=== PATIENT | male | born 1935 | race Caucasian/White ===

== ENCOUNTER 2016-09-26 08:37 | Outpatient (CLI) | payer MEDICARE, BC ==
[~2016-09-26] VITALS: Ht 175.3 cm; Wt 90.9 kg
--- NOTE | ~2016-09-26 | HEMODYNAMI ---
PATIENT:SHERIDAN HAMLIN V SR MEDICAL RECORD: [id number] : 33 LOCATION:DSAMMI ADMISSION DATE: 09/26/16 Generatedon:09/26/201611:27 Patient name: SHERIDAN HAMLIN Patient #: [id number] SSN: DO B: 1935 Date of study: 09/26/2016 Page: Of Hemodynamic Procedure Report Patient Data Patient Demographics Procedure consent was obtained First Name: SHERIDAN Gender: Male Last Name: YAKELIN Suffix: Sr [facility] Initial: V : 1935 Patient #: [id number] Age: 81 year(s) Race: Unknown Additional ID: [id number] Contact details [address]: [address] [place] [address] State: [place] City: [place] Zip code: [address] Past Medical History Allergies: No known allergies Admission Admission Data Admission Date: 09/26/2016 Admission Time: 8:37 Admit Source: Other Lab Results Lab Result Date: 09/26/2016 Lab Result Time: 9:25 Biochemistry Name Units Result Min Max BUN mg/dl 17 --(---*)-- 7 18 Creatinine mg/dl 1.4 --(----)*- 0.6 1.3 CBC Name Units Result Min Max Hematocrit % 42.9 --(*---)-- 42 54 Hemoglobin g/dl 13.3 -*(----)-- 13.5 17.5 Procedure Procedure Types Cath Procedure Diagnostic Procedure LHC LHC w/Coronaries w/Grafts PCI Procedure Coronary Stent Initial Miscellaneous Procedures Moderate Sedation up to 30 minutes Procedure Description Procedure Date Procedure Date: 09/26/2016 Procedure Start Time: 11:07 Procedure End Time: 11:27 Procedure Staff Name Function Micheal Ann MD Performing Physician Joselito Lizama RT Scrub Chapo Sapp RN Nurse Dave Adame RT Monitor Procedure Data Cath Procedure Fluoroscopy Diagnostic fluoroscopy Total fluoroscopy Time: 6.5 time: 6.5 min min Diagnostic fluoroscopy Total fluoroscopy dose: dose: 1078 mGy 1078 mGy Contrast Material Contrast Material Type Amount (ml) Isovue 300 128 Entry Location Entry Primary Successful Side Size Upsize Upsize Entry Closure Succes sful Closure Location (Fr) 1 (Fr) 2 (Fr) Remarks Device Remarks Femoral Right 5 Fr 6 Fr Exoseal artery Short Estimated blood loss: 10 ml Diagnostic catheters Device Type Used For End Catheter Placement Cordis 5Fr Pigtail Procedure Catheter (MP) Cordis 5Fr JL 4.0 Procedure Catheter (MP) Cordis 5Fr 3DRC Catheter Procedure (MP) Diagnostic Infinity 5Fr Procedure AR 2 MOD catheter Procedure Complications No complications Procedure Medications Medication Administration Route Dosage Oxygen NC 2 l/min Heparin Flush Bag added to field 2 bags (1000units/500ml NS) 0.9% NaCl I.V. 100 ml/hr Plavix P.O. 75 mg Fentanyl I.V. 50 mcg Versed I.V. 1 mg Fentanyl I.V. 50 mcg Versed I.V. 1 mg Heparin Bolus I.V. 4000 units Hemodynamics Rest HGB: 13.3 (g/dl) Heart Rate: 70 (bpm) Snapshots Pre Cath Intra NCS Post Cath Vital Signs Time Heart Resp SPO2 etCO2 PA9oijv NIBP (mmHg) Rhythm Pain Sedation Rate (ipm) (%) (mmHg) (mmHg) Status Level (bpm) 10:54:48 67 19 97 0 0 176/81(140) NSR 0 (11) 10(A) , No pain 10:59:17 58 17 95 0 0 157/79(133) NSR 0 (11) 10(A) , No pain 11:03:43 64 16 97 0 0 158/69(129) NSR 0 (11) 10(A) , No pain 11:08:09 67 19 92 0 0 138/65(112) NSR 0 (11) 9(A) , No pain 11:12:25 69 19 96 0 0 130/66(99) NSR 0 (11) 9(A) , No pain 11:16:41 65 18 97 0 0 135/68(103) NSR 0 (11) 9(A) , No pain 11:20:57 69 17 98 0 0 123/66(99) NSR 0 (11) 9(A) , No pain 11:25:01 64 17 98 0 0 126/69(89) NSR 0 (11) 9(A) , No pain Medications Time Medication Route Dose Verified Delivered Reason Notes Effectiveness by by 10:54:45 Oxygen NC 2 Chapo Chapo Per physician l/min Sekou Sapp RN RN 10:54:54 Heparin Flush added 2 Chapo Verasy used for Bag to bags Sekou Sapp RN procedure (1000units/500ml field RN NS) 10:55:03 0.9% NaCl I.V. 100 Chapo Verasy Per physician ml/hr Sekou Sapp RN RN 10:55:15 Plavix P.O. 75 mg Chapo Chapo for Sekou Sapp RN antiplatelet RN therapy 11:02:12 Fentanyl I.V. 50 Chapo Chapo for sedation mcg Sekou Sapp RN RN 11:02:19 Versed I.V. 1 mg Chapo Chapo for sedation Sekou Sapp RN RN 11:07:04 Fentanyl I.V. 50 Chapo Chapo for sedation mcg Sekou Sapp RN RN 11:07:08 Versed I.V. 1 mg Chapo Chapo for sedation Sekou Sapp RN RN 11:15:00 Heparin Bolus I.V. 4000 Chapo Chapo for units Sekou Sapp RN anticoagulation rn tele Log Time Note 10:30:08 Chapo Sapp RN sent for patient. Start room use. 10:40:27 Informed consent obtained and on chart 10:40:32 Admit Source: Other 10:41:07 Diagnostic Cath status Elective 10:41:18 Time tracking: Regular hours 10:41:21 Plan of Care:Hemodynamics will remain stable., Cardiac rhythm will remain stable., Comfort level will be maintained., Respiratory function will remain adequate., Patient/ family verbilizes understanding of procedure., Procedure tolerated without complication., Recovers from procedure without complications.. 10:41:35 H&P Date Dictated: 09/03/2016 Within 30 days and on chart., H&P Addendum completed by physician on day of procedure. (MUST COMPLETE FOR ALL OUTPATIENTS). 10:43:02 Lab Result : Creatinine 1.4 mg/dl 10:43:02 Lab Result : BUN 17 mg/dl 10:43:02 Lab Result : Hematocrit 42.9 % 10:43:02 Lab Result : Hemoglobin 13.3 g/dl 10:46:11 Patient received from Pre/Post Procedure Room to CCL 1 Alert and oriented. Tansferred to table in Supine position. 10:46:12 Warm blankets applied, and sandrita hugger turned on for patient comfort. 10:46:12 Correct patient and procedure confirmed by team. 10:46:13 ECG and BP/O2 sat monitors applied to patient. 10:53:32 Vital chart was started 10:54:45 Oxygen 2 l/min NC was administered by Chapo Sapp RN; Per physician; 10:54:54 Heparin Flush Bag (1000units/500ml NS) 2 bags added to field was administered by Chapo Sapp RN; used for procedure; 10:55:03 0.9% NaCl 100 ml/hr I.V. was administered by Chapo Sapp RN; Per physician; 10:55:15 Plavix 75 mg P.O. was administered by Chapo Sapp RN; for antiplatelet therapy; 11:00:16 Baseline sample Acquired. 11:00:22 Rhythm: sinus rhythm 11:00:23 Pre-procedure instructions explained to patient. 11:00:23 Pre-op teaching completed and patient verbalized understanding. 11:00:26 Family in waiting room. 11:00:27 Patient NPO since Midnight. 11:00:33 Patient allergic to No known allergies 11:00:36 Is the patient allergic to Iodine/contrast media? No. 11:00:38 Is patient on blood thinner?Yes 11:00:41 ACC The patient was administered the following blood thiners within the last 24 hours: ACCPlavix 11:00:43 Patient diabetic? Yes. 11:00:44 If diabetic: On Metformin? Yes 11:00:47 If on Metformin: Last Dose? 09/25/2016 11:00:56 Previous problem with sedation/anesthesia? No ? 11:00:57 Snore? Yes 11:00:58 Sleep apnea? No 11:01:10 Deviated septum? No 11:01:11 Opens mouth fully? Yes 11:01:11 Sticks out tongue? Yes 11:01:14 Airway obstruction? No ? 11:01:16 Dentures? No ? 11:01:18 Pre procedure: right dorsailis pedis pulse 1+ Palpable, but thready & weak; easily obliterated 11:01:21 Patient pain scale 0/10 ?. 11:01:26 IV patent on arrival in left forearm with 0.9% NaCl at [facility]. 11:01:28 Lab results completed and on chart. 11:01:32 Use device set Femoral Dx 11:01:33 Tegaderm 4 x 4 opened to sterile field. 11:01:34 Acist Manifold opened to sterile field. 11:01:35 Acist Hand Control opened to sterile field. 11:01:36 Acist Syringe opened to sterile field. 11:01:36 Bag Decanter opened to sterile field. 11:01:37 Medline Cath Pack opened to sterile field. 11:01:38 Terumo 5Fr [place] Sheath opened to sterile field. 11:01:38 St Arnav 260cm J .035 wire opened to sterile field. 11:01:39 Diagnostic Infinity 5Fr Multipack catheter opened to sterile field. 11:01:49 Right groin area was prepped with chlora-prep and draped in sterile fashion 11:01:50 Alarms reviewed by R. N. 11:01:50 Sharps counted by scrub and verified by R.N. 11:01:52 Physician arrived 11::52 --------ALL STOP TIME OUT------ 11:01:52 Final Timeout: patient, procedure, and site verified with staff and physician. All members of the team are in agreement. 11:01:54 Right groin site verified by team. 11:01:57 Physical assessment completed. ASA score P 2 - A patient with mild systemic disease as per Micheal Ann MD. 11:01:59 Sedation plan: IV Moderate Sedation Versed, Fentanyl 11:02:12 Fentanyl 50 mcg I.V. was administered by Chapo Sapp RN; for sedation; 11::19 Versed 1 mg I.V. was administered by Chapo Sapp RN; for sedation; 11:06:46 Zero performed for pressure channel P1 11:06:49 Zero performed for pressure channel P1 11:06:53 Zero performed for pressure channel P1 11:06:55 Zero performed for pressure channel P1 11:06:58 Zero performed for pressure channel P1 11:07:01 Zero performed for pressure channel P1 11:07:04 Fentanyl 50 mcg I.V. was administered by Chapo Sapp RN; for sedation; 11:07:04 Zero performed for pressure channel P1 11:07:08 Versed 1 mg I.V. was administered by Chapo Sapp RN; for sedation; 11:07:10 Zero performed for pressure channel P1 11:07:18 Zero performed for pressure channel P1 11:07:30 Procedure started. 11:07:30 Full Disclosure recording started 11:07:34 Local anesthetic to right femoral artery with Lidocaine 2% by Micheal Ann MD.INITIAL ACCESS ONLY 11:07:41 A 5 Fr sheath was inserted into the Right Femoral artery 11:07:48 A Cordis 5Fr Pigtail Catheter (MP) was advanced over the wire and used for Procedure. 11:07:51 LV gram done using WOLFF 11:07:54 Injector settings: Ml/sec: 10, Volume: 20, 11:08:30 EF : 50 % 11:08:33 Catheter exchanged over wire. 11:08:37 A Cordis 5Fr JL 4.0 Catheter (MP) was advanced over the wire and used for Procedure. 11:09:27 LCA angiography performed. 11:10:06 Acquisio BasixCompak Inflation Kit opened to sterile field. 11:10:07 Diaz Whisper J 300cm 0.014 guide wire opened to sterile field. 11:10:14 Catheter exchanged over wire. 11:10:18 A Cordis 5Fr 3DRC Catheter (MP) was advanced over the wire and used for Procedure. 11:10:55 ROBLERO to LAD angiography performed. 11:11:05 RCA angiography performed. 11:11:22 RCA Totally occluded. 11:11:29 Catheter exchanged over wire. 11:12:03 Terumo 6Fr [place] Sheath opened to sterile field. 11:12:12 Sheath upsized to a 6 Fr Short. 11:12:16 A Diagnostic Infinity 5Fr AR 2 MOD catheter was advanced over the wire and used for Procedure. 11:13:13 SVG to Circ angiography performed. 11:14:04 SVG to RCA occluded. 11:14:41 Catheter removed. 11:14:48 Cordis 6FR XBLAD 4.0 guide catheter opened to sterile field. 11:14:56 6 Fr xblad 4 guide catheter was inserted over the wire 11:15:00 Heparin Bolus 4000 units I.V. was administered by Chapo Sapp RN; for anticoagulation; 11:15:13 Procedure type changed to Cath procedure, Diagnostic procedure, LHC, LHC w/Coronaries w/Grafts, PCI procedure, Coronary Stent Initial, Miscellaneous Procedures, Moderate Sedation up to 30 minutes 11:16:36 whisper wire advanced. 11:17:00 Wire advanced across lesion. 11:18:42 Inflation number: 1 A Mozec Rx 3.0 x 14 balloon was prepped and advanced across the Mid CX, then inflated to 17 GENEVA for 0:10 (min:sec). 11:18:59 Inflation number: 2 The Mozec Rx 3.0 x 14 balloon was reinflated across the Mid CX, to 19 GENEVA for 0:00 (min:sec). 11:19:26 Balloon removed over the wire. 11:21:09 Inflation Number: 3 A [place] OTW 3.0 x 15 stent was prepped and advanced across the Mid CX. The stent was deployed at 21 GENEVA for 0:10 (min:sec). 11:21:23 Stent catheter was removed intact over wire. 11:21:24 Wire removed. 11:21:25 Guide catheter removed. 11:21:35 Cordis 6Fr Exoseal opened to sterile field. 11:21:42 Sheath removed intact; hemostasis achieved with Exoseal to the Right Femoral artery. 11:21:43 Procedure ended.(Physican Out) 11:25:04 Fluoroscopy time 06.50 minutes. 11:25:08 Fluoroscopy dose: 1078 mGy 11:25:08 Flurop Dose total: 1078 11:25:13 Contrast amount:Isovue 300 128ml. 11:25:15 Sharps counted by scrub and verified by R.N. 11:25:18 Insertion/operative site no bleeding no hematoma. 11:25:21 Post-op/insertion site Right Femoral artery dressed using a 4 x 4 and Tegaderm. 11:25:26 Post right femoral artery:stable, soft, clean and dry 11:25:32 Post procedure rhythm: unchanged. 11:25:34 Estimated blood loss: 10 ml 11:25:37 Post procedure instruction explained to patient.Patient verbalizes understanding. 11:25:37 Patient needs reinforcement of post procedure teaching. 11:26:13 Procedure and supply charges have been captured, reviewed, submitted and are correct. 11:26:15 Procedure Complication : No complications 11:26:17 Vital chart was stopped 11:26:53 See physician's report for complete and final results. 11:26:57 Report given to Pre/Post Procedure Room. 11:27:01 Patient transfered to Pre/Post Procedure Room with Stretcher. 11:27:05 Procedure ended. 11:27:05 Full Disclosure recording stopped 11:27:09 End room use (Document Last) Intervention Summary Intervention Notes Time ActionType Lesion and Equipment Action# Pressure Duration Attributes Used 11:18:42 Inflate Mid CX Mozec Rx 1 17 00:10 balloon 3.0 x 14 balloon 11:18:59 Reinflate Mid CX Mozec Rx 2 19 00:00 balloon 3.0 x 14 balloon 11:21:09 Place stent Mid CX [place] OTW 3 21 00:10 3.0 x 15 stent Device Usage Item Name Manufacture Quantity Catalog Hospital Part Current Minima l Lot# / Number Charge Number Stock Stock Serial# Code Tegaderm 4 3M 1 1626W [id number] 490615 806508 5 x 4 Acist Acist 1 51650 143407 086238 797688 5 Manifold Medical Systems Blu Health Systems Acist Hand Acist 1 36484 089283 982698 302739 5 [employer] Inc. Systems Inc Acist Acist 1 40660 127737 844447 390451 20 Syringe Bar Pass Systems Blu Health Systems Bag Microtek 1 2002S 674742 19019 213898 5 [employer]am[employer] Inc. Medline Cardinal 1 [id number] 700273 33636 773540 5 Cath Pack Health Terumo 5Fr Terumo 1 [id number] 590482 970545 227044 [address] St Arnav 1 [id number] 410485 255688 004149 30 260cm J .035 wire Diagnostic Cardinal 1 [id number] 940065 28975 566974 30 Infinity Health 5Fr Multipack catheter Cordis 5Fr Cardinal 1 553158 5 Pigtail Health Catheter (MP) Cordis 5Fr Cardinal 1 479508 5 JL 4.0 Health Catheter (MP) Merit Merit 1 JM7749 032273 846294 673969 15 BasixCompak Medical Inflation Kit Diaz Diaz 1 [id number] 414531 173035 353236 5 Whisper J Vascular 300cm 0.014 guide wire Cordis 5Fr Cardinal 1 110275 5 3DRC Health Catheter (MP) Terumo 6Fr Terumo 1 ITG606 736771 895411 392773 40 [place] Sheath Diagnostic Cardinal 1 [id number] 886444 903292 575753 20 Infinity Health 5Fr AR 2 MOD catheter Cordis 6FR Cardinal 1 [id number] 858959 473934 346322 3 XBLAD 4.0 Health guide catheter Mozec Rx Cardinal 1 [id number] 308596 3254413 548859 5 UMOA71 3.0 x 14 Health balloon [place] OTW Medtronic 1 [id number] 924464 139868 666704 5 [id number] 3.0 x 15 stent Cordis 6Fr Cardinal 1 EX600 847894 480940 547730 10 [facility] [employer] Signature Audit [place] Stage Time Signature Unsigned Intra-Procedure 09/26/2016 Dave Adame 11:27:55 AM RT(R) Signatures Monitor : Dave Adame RT Signature : Date : Time : [place] [id number] [place] [address]
--- NOTE | ~2016-09-26 | OP ---
PATIENT NAME: SHERIDAN HAMLIN SR MEDICAL RECORD: [id number] :34 LOCATION:D.CAT ADMISSION DATE: SURGEON: DAMIEN BIGGS MD DATE OF OPERATION: 09/26/2016 PROCEDURES: 1. PTCA stent left circumflex. 2. Left heart catheterization. 3. Selective coronary angiography. 4. Left ventriculogram. 5. Vein graft angiography. 6. ROBLERO angiography. INDICATION: Angina and coronary artery disease. PROCEDURE IN DETAIL: After informed consent was obtained and after a detailed explanation of the risks, benefits as well as alternative therapies, the patient elected to proceed with angiogram and angioplasty. The right femoral area is prepped and draped in normal sterile fashion. The right femoral artery was cannulated via modified Seldinger technique with placement of 6-Liberian sheath. All catheters exchanged through this sheath. FINDINGS: The left ventriculogram was performed in standard 30 degree WOLFF view, reveals preserved cardiac wall motion, ejection fraction 50%. SELECTIVE CORONARY ANGIOGRAPHY: 1. Left main showed no significant angiographic disease. 2. Left circumflex has 95% stenosis at the ostium. This is the AV groove circumflex, the first obtuse is marginal that is grafted has a 99% stenosis at the ostium; hence, the graft is not feed the AV groove circumflex and the second obtuse marginal area. 3. The left anterior descending is totally occluded. 4. The right coronary is totally occluded. 5. Vein graft to the right coronary is closed. 6. ROBLERO to the LAD is widely patent. Distal LAD is widely patent. 7. Vein graft to the circumflex is widely patent. Distal first obtuse marginal is widely patent. PTCA STENT OF THE OSTIAL OF THE CIRCUMFLEX: The stent used is a 3.0 x 15 Kobe. Result was 0% residual stenosis. OVERALL IMPRESSION: Successful percutaneous transluminal coronary angioplasty stent of the circumflex going from 95% initial stenosis to 0% residual stenosis. TRANSINT:[id number] Voice Confirmation ID: [id number] DOCUMENT ID: [id number] DAMIEN BIGGS MD CC: [id number] DICTATION DATE: 09/26/16 1129 SALES UTILITY REPRESENTATIVE: 09/26/16 1633 DEP CLI 09/26/16 [facility] [address] [place] [address]
[~2016-09-26 08:37] MED LIST: BAYER CHEWABLE81 MG PO; COREG6.25 MG; GLUCOPHAGE500 MG PO; HYTRIN5 MG; IMDUR60 MG PO; PLAVIX75 MG; VITAMIN D3400 UNI1 PO
[2016-09-26] MEDS ORDERED: GLIPIZIDE10 MG PO (09:07)
[2016-09-26] MEDS ORDERED: MESTINON60 MG PO (09:07)
[2016-09-26] MEDS ORDERED: PLAVIX75 MG PO (09:08)
[2016-09-26] MEDS ORDERED: FUROSEMIDE20 MG PO (09:08)
[2016-09-26] MEDS ORDERED: ISOSORBIDE MONO60 M1 PO (09:08)
[2016-09-26] MEDS ORDERED: ZETIA10 MG PO (09:09)
[2016-09-26] MEDS ORDERED: OMEPRAZOLE40 MG PO (09:10)
[2016-09-26 09:20] VITALS: BP 149/67; Ht 175.3 cm; Wt 90.9 kg
[2016-09-26 09:49] LABS: BASOPHILS 0.4 % (0-2); EOSINOPHILS 3.1 % (0-7); HEMATOCRIT 42.9 % (42.0-54.0); HEMOGLOBIN 13.3 g/dL (13.5-17.5); IMMATURE GRANULOCYTES 0.4 % (0-5); LYMPHOCYTES 26.9 % (15-50); MCH 25.9 pg (26.0-34.0); MCV 83.5 fL (80.0-100.0); MONOCYTES 6.9 % (2-11); NEUTROPHILS 62.3 % (40-80); PLATELET COUNT 255 10x3/uL (130-400); RBC 5.14 10x6/uL (4.20-6.10); RDW 14.8 % (11.5-14.5); WBC 9.2 10x3/uL (4.8-10.8)
[2016-09-26 09:58] LABS: ANION GAP 10.1 mmol/L (8-16); CALCIUM 8.8 mg/dL (8.5-10.1); CREATININE - SERUM 1.4 mg/dL (0.6-1.3); POTASSIUM - SERUM 4.1 mmol/L (3.5-5.1)
--- NOTE | 2016-09-26 11:45 | NUR ---
RIGHT GROIN CDI, NO HEMATOMA OR BLEEDING AT SITE, SOFT TO TOUCH, SLIGHT REDNESS UNDER TEGADERM. FAMILY AT SIDE, VSS
--- NOTE | 2016-09-26 12:15 | NUR ---
NO CHANGES TO RIGHT GROIN, FAMILY AT SIDE. DENIES NEEDS
--- NOTE | 2016-09-26 15:30 | NUR ---
D'C HOME WITH DRIVING.
== END 2016-09-26 15:30 | disposition home or self-care (01) ==
LOC: D.CATH 08:37
PROVIDERS: Internal Medicine Interventional Cardiology
DX: I25.119 Atherosclerotic heart disease of native coronary artery with unspecified angina pectoris (principal); I10 Essential (primary) hypertension; E78.5 Hyperlipidemia, unspecified; Z95.5 Presence of coronary angioplasty implant and graft; E11.9 Type 2 diabetes mellitus without complications; Z01.812 Encounter for preprocedural laboratory examination
CPT/HCPCS: 93459; C9600

== ENCOUNTER 2017-06-21 16:25 | Inpatient (IN) | payer MEDICARE, BC ==
[~2017-06-21] VITALS: Ht 175.3 cm; Wt 90.7 kg
--- NOTE | ~2017-06-21 | CN ---
PATIENT NAME:SHERIDAN MCCALLUM SR MEDICAL RECORD: [id number] : 33 LOCATION:D.MS [place] ADMIT DATE: 06/22/17 ACCOUNT: [id number] CONSULTING PHYSICIAN: CELY GONZALEZ MD REFERRING PHYSICIAN: MAMTA SHETH MD DATE OF CONSULTATION: 06/22/2017 CONSULT REQUESTING PHYSICIAN: Rito Schulte MD REASON FOR CONSULTATION: Possible pneumonia, fever, and chill. HISTORY OF PRESENT ILLNESS: Mr. Mccallum is an 82-year-old gentleman. According to the patient, when he came out from the jehovah's witness yesterday, he had some chills and then he started nausea, vomiting. According to the patient, he did not aspirate any vomit. He was seen in the urgent care and admitted directly for possible pneumonia. He was also running fever of 103. The patient does not hear himself wheezing. There is cough without much sputum production. REVIEW OF THE SYSTEM: As in history of present illness. PAST MEDICAL HISTORY: 1. History of asbestos exposure. 2. Coronary artery disease. 3. Hypertension. 4. Myasthenia gravis. 5. Dysphagia. 6. History of heart murmur. 7. History of skin cancer. 8. He has also type 2 diabetes mellitus. PAST SURGICAL HISTORY: 1. He had cholecystectomy. 2. He had T&A. 3. He had knee surgery. 4. He had CABG. ALLERGIES: There are no known drug allergies. MEDICATIONS: Segmint was reviewed. PERSONAL AND SOCIAL HISTORY: The patient was a smoker for almost 20 years. He started at age of 4, quit at age of 25. He is nondrinker. FAMILY HISTORY: Significant for cardiovascular disease. PHYSICAL EXAMINATION: GENERAL: Now, the patient is lying comfortably in bed. He is not in acute distress. VITAL SIGNS: The blood pressure is 131/62, pulse is 83, respiration is 19, temperature is 98.8, SpO2 is 97% on room air. HEENT: Conjunctivae are pink. Sclerae are not icteric. NECK: Neck is supple. No JVD. CHEST: The chest excursion is minimal on both sides. There is no wheeze. There are crackles. HEART: Rhythm regular. Normal sound. No murmur. CONSULT REPORT [id number] RUSHING,SHERIDAN V SR ABDOMEN: Abdomen is soft. Bowel sounds present. There is anterior abdominal hernia. RECTAL: Deferred. EXTREMITIES: No cyanosis. No clubbing. There is 1+ pedal edema. LAB DATA: CBC; WBC 25.8, hemoglobin 12.6, hematocrit 40.4, and platelet count is 212. Chemistry; sodium 141, potassium 3.7, BUN is 17, creatinine is 1.5. CHEST RADIOGRAPH: There are increased interstitial markings. There are pleural plaques. IMPRESSION: 1. Bilateral pneumonitis, most likely community-acquired pneumonia, possible streptococcal pneumonia with the patient's fever and chills. 2. Leukocytosis. 3. Nausea and vomiting, probably secondary to #1. 4. Ex-smoker, suspect COPD. 5. History of asbestos exposure with pleural plaques. 6. Acute kidney injury secondary to dehydration. 7. Coronary artery disease. RECOMMENDATION: 1. I will discontinue vancomycin. Start on Levaquin. Continue Rocephin. 2. Followup chest radiograph. Followup on the blood cultures. 3. Repeat chest radiograph and labs in the morning. The patient will need outpatient workup for suspecting COPD. Dr. Schulte, thank you for involving me in the care of Mr. Mccallum. TRANSINT:[id number] Voice Confirmation ID: [id number] DOCUMENT ID: [id number] CELY GONZALEZ MD at 1208 CC: JEANNETTE GARCIA [id number] DICTATION DATE: 06/22/171811 TAKE OFF MAN: 06/22/17 2300 ADM [address] [place] [id number] [place] [address]
[~2017-06-21 16:25] MED LIST changes: -COREG6.25 MG; +COREG6.25 MG PO; +FUROSEMIDE20 MG PO; +GLIPIZIDE10 MG PO; -HYTRIN5 MG; +HYTRIN5 MG PO; +ISOSORBIDE MONO60 M1 PO; +MESTINON60 MG PO; +OMEPRAZOLE40 MG PO; +PLAVIX75 MG PO; +ZETIA10 MG PO
[2017-06-21 17:05] LABS: HEMATOCRIT 40.4 % (42.0-54.0); HEMOGLOBIN 12.6 g/dL (13.5-17.5); MCH 26.3 pg (26.0-34.0); MCHC 31.2 g/dL (31.0-37.0); MCV 84.2 fL (80.0-100.0); PLATELET COUNT 212 10x3/uL (130-400); RDW 14.7 % (11.5-14.5); WBC 25.8 10x3/uL (4.8-10.8)
[2017-06-21 17:25] LABS: LYMPHOCYTES 11 % (15-50); MONOCYTES 2 % (2-11); NEUTROPHILS 79 % (40-80); PLATELET ESTIMATE NORMAL
[2017-06-21 17:43] LABS: ALBUMIN 3.4 g/dL (3.4-5.0); ANION GAP 14.6 mmol/L (8-16); BILIRUBIN - TOTAL 0.6 mg/dL (0.2-1.3); CALCIUM 8.7 mg/dL (8.5-10.1); CARBON DIOXIDE 25.1 mmol/L (21.0-32.0); CREATININE - SERUM 1.5 mg/dL (0.6-1.3); POTASSIUM - SERUM 3.7 mmol/L (3.5-5.1); PROTEIN - SERUM 6.9 g/dL (6.4-8.2)
[2017-06-21 18:32] LABS: CREATINE KINASE 101 UL (21-232); PRO BNP 1148 pg/mL (0-450)
[2017-06-21 18:36] LABS: TROPONIN-I < 0.017 ng/mL (0.000-0.060)
[2017-06-21 18:40] LABS: APPEARANCE CLEAR (CLEAR); COLOR DK YELLOW (YELLOW)
[2017-06-21 18:41] LABS: BILIRUBIN NEGATIVE (NEGATIVE); GLUCOSE NEGATIVE (NEGATIVE); KETONE NEGATIVE (NEGATIVE); NITRITE NEGATIVE (NEGATIVE); PROTEIN NEGATIVE (NEGATIVE); UROBILINOGEN NORMAL (NORMAL)
[2017-06-21 23:07] VITALS: BP 85/43; BMI 29.6
[2017-06-22 04:00] VITALS: BP 122/59
[2017-06-22 08:12] VITALS: BP 121/60
[2017-06-22 12:00] VITALS: BP 106/55
[2017-06-22 14:05] VITALS: BMI 29.5
[2017-06-22 16:36] VITALS: BP 131/62
[2017-06-22 21:45] VITALS: BP 114/54
[2017-06-23 01:01] VITALS: BP 135/63
[2017-06-23 04:37] LABS: BASOPHILS 0.2 % (0-2); EOSINOPHILS 1.4 % (0-7); HEMATOCRIT 36.7 % (42.0-54.0); IMMATURE GRANULOCYTES 0.3 % (0-5); LYMPHOCYTES 11.9 % (15-50); MCH 25.2 pg (26.0-34.0); MCV 84.2 fL (80.0-100.0); MEAN PLATELET VOLUME 10.2 fL (7.4-10.4); MONOCYTES 5.9 % (2-11); NEUTROPHILS 80.3 % (40-80); PLATELET COUNT 191 10x3/uL (130-400); RBC 4.36 10x6/uL (4.20-6.10); RDW 15.3 % (11.5-14.5)
[2017-06-23 04:41] LABS: WBC 13.7 10x3/uL (4.8-10.8)
[2017-06-23 04:45] VITALS: BP 124/68
[2017-06-23 04:55] LABS: ALBUMIN 2.6 g/dL (3.4-5.0); ANION GAP 8.7 mmol/L (8-16); BILIRUBIN - TOTAL 0.4 mg/dL (0.2-1.3); CALCIUM 8.1 mg/dL (8.5-10.1); CARBON DIOXIDE 26.3 mmol/L (21.0-32.0); CREATININE - SERUM 1.5 mg/dL (0.6-1.3); PROTEIN - SERUM 6.5 g/dL (6.4-8.2)
[2017-06-23 08:16] VITALS: BP 134/55
[2017-06-23 13:02] VITALS: BP 119/74
[2017-06-23 16:50] VITALS: BP 124/53
[2017-06-23 21:07] VITALS: BP 129/60
[2017-06-24 01:17] VITALS: BP 134/68
[2017-06-24 04:21] LABS: BASOPHILS 0.2 % (0-2); EOSINOPHILS 2.7 % (0-7); HEMATOCRIT 35.5 % (42.0-54.0); IMMATURE GRANULOCYTES 0.3 % (0-5); LYMPHOCYTES 12.9 % (15-50); MCH 25.8 pg (26.0-34.0); MCV 83.1 fL (80.0-100.0); MEAN PLATELET VOLUME 9.8 fL (7.4-10.4); MONOCYTES 6.6 % (2-11); NEUTROPHILS 77.3 % (40-80); PLATELET COUNT 215 10x3/uL (130-400); RBC 4.27 10x6/uL (4.20-6.10); RDW 15.2 % (11.5-14.5); WBC 12.4 10x3/uL (4.8-10.8)
[2017-06-24 04:42] LABS: ALBUMIN 2.7 g/dL (3.4-5.0); ANION GAP 13.7 mmol/L (8-16); BILIRUBIN - TOTAL 0.44 mg/dL (0.2-1.3); CALCIUM 8.4 mg/dL (8.5-10.1); CREATININE - SERUM 1.3 mg/dL (0.6-1.3); POTASSIUM - SERUM 3.7 mmol/L (3.5-5.1); PROTEIN - SERUM 6.7 g/dL (6.4-8.2)
[2017-06-24 04:44] VITALS: BP 136/72
[2017-06-24 08:00] VITALS: BP 179/82
[2017-06-24 08:17] VITALS: Ht 175.3 cm; Wt 90.7 kg
[2017-06-24] MEDS ORDERED: MUCINEX600 MG PO (10:40)
[2017-06-24] MEDS ORDERED: FLORAJEN3 CAPS460 MG PO (10:40)
[2017-06-24] MEDS ORDERED: TESSALON PERLE100 MG PO (10:40)
[2017-06-24] MEDS ORDERED: LEVAQUIN750 MG PO (10:40)
[2017-06-24] MEDS ORDERED: OMNICEF300 MG PO (10:41)
== END 2017-06-24 12:23 | disposition home or self-care (01) | DRG 871 ==
LOC: D.ER 16:25 → D.MS 22:24 → OBSVTIME 22:24 → D.MS 22:24
PROVIDERS: Emergency Medicine; Family Medicine; Nurse Practitioner Family
DX: A41.9 Sepsis, unspecified organism (principal); J18.9 Pneumonia, unspecified organism; N17.9 Acute kidney failure, unspecified; E86.0 Dehydration; I10 Essential (primary) hypertension; I25.10 Atherosclerotic heart disease of native coronary artery without angina pectoris; G70.00 Myasthenia gravis without (acute) exacerbation; Z95.1 Presence of aortocoronary bypass graft; Z87.891 Personal history of nicotine dependence; E11.9 Type 2 diabetes mellitus without complications; Z79.84 Long term (current) use of oral hypoglycemic drugs

== ENCOUNTER → 2017-09-28 10:19 | Outpatient (CLI) | payer MEDICARE, BC ==
[2017-06-24 08:17] VITALS: BMI 29.5
[~2017-09-28 10:19] MED LIST changes: +FLORAJEN3 CAPS460 MG PO; +LEVAQUIN750 MG PO; +MUCINEX600 MG PO; +OMNICEF300 MG PO; +TESSALON PERLE100 MG PO
== END | disposition home or self-care (01) ==
LOC: D.RT 10:19
DX: J44.9 Chronic obstructive pulmonary disease, unspecified (principal); R06.09 Other forms of dyspnea